=== PATIENT | female | born 1930 | race Caucasian/White ===

== ENCOUNTER → 2016-12-11 | Outpatient (CLI) | payer MEDICARE, BC ==
[~2016-12-11] MED LIST: ALENDRONATE SOD70 MG PO; AMBIEN10 MG PO; AMLODIPINE BESY10 MG PO; AMLODIPINE BESYL5 MG PO; ASPIRIN81 M1 PO; ASPIRIN81 M2 PO; CELEXA20 MG PO; ECOTRIN325 MG PO; HYZAAR 50-12.51 TA1 PO; IRON SUPPLEMENT1 TAB PO; LEVOTHROID50 MCG PO; LEVOTHYROXINE50 MCG PO; LIPITOR40 MG PO; LOSARTAN-HCTZ1 EACH PO; MELATONIN5 M1 PO; MELOXICAM15 MG PO; NORVASC PO; NORVASC10 MG PO; OMEPRAZOLE40 MG PO; PERCOCET5/325 PO; PREMARIN0.625 MG PO; PREVACID PO; PRILOSEC PO; SIMVASTATIN40 MG PO; SYNTHROID0.05 MG PO; TASPRIN325 MG PO; TOPROL XL 50 MG50 MG PO; TOPROL XL50 MG PO; TRAMADOL HCL50 M2 PO
--- NOTE | ~2016-12-11 | CT90 ---
[facility]. [facility] A Service of [facility] RADIOLOGY TEXT RESULTS PATIENT: CIARAN SHAW LOCATION: [facility] : 32 UNIT #: [id number] AGE: [address]: EDUARDO HOPE DO SEX: F ORDER DR: [id number] [place] [address] [id number] O MR#: [id number] Acc #: [id number] NAME: CIARAN SHAW : 1930 SEX: F STUDY DATE/TIME: 12/11/2016 11:09 UNIT: [facility] ROOM: STUDY DESCRIPTION: CT Lower Ext Lt W Cont Attending Physician: Eduardo Hope D.O. Referring Physician: Eduardo Hope D.O. Ordering Physician: Eduardo Hope D.O. Primary Care Physician: Eduardo Hope D.O. MEDICAL IMAGING REPORT This report is preliminary unless electronic signature is present. EXAM CT left lower extremity with contrast 12/11/2016 HISTORY 86-year-old female with 3 palpable nodules on the left thigh since May 11, 2016. The nodules are painful per the patient. Order states soft tissue mass, lymphadenopathy. COMPARISON STUDIES Comparison none. TECHNIQUE Helical scan performed through the left thigh following administration of IV contrast. Coronal and sagittal reformatted images. This CT exam was performed with one or more of the following radiation dose reduction techniques: automatic exposure control, adjustment of mA and/or kV according to patient size, and iterative reconstruction. FINDINGS External markers were placed over the 3 areas of palpable concern. Two of the markers are over the lateral aspect of the proximal thigh and 1 of the markers is over the anterior aspect of the mid thigh. Deep to these markers, there is no evidence of an abnormal soft tissue mass or other abnormality in the subcutaneous soft tissues. No fluid collections are seen. Visualized subcutaneous fat is normal in attenuation. No abnormal enhancement. The visualized musculature and osseous structures are unremarkable. There are degenerative changes noted in the left knee with a small left knee effusion and popliteal cyst. The visualized visceral pelvis demonstrates uncomplicated sigmoid colonic diverticulosis. IMPRESSION 1. No CT abnormalities noted in the marked areas of palpable concern [facility] A Service of [facility] RADIOLOGY TEXT RESULTS PATIENT: CIARAN SHAW LOCATION: [facility] : 32 UNIT #: [id number] AGE: [address]: EDUARDO HOPE DO SEX: F ORDER DR: along the lateral and anterior aspects of the left thigh. No abnormal enhancement. Subcutaneous fat is within normal limits. No abnormal fluid collections. 2. Degenerative changes of the left knee with small left knee effusion and popliteal cyst. 3. Uncomplicated sigmoid colonic diverticulosis. 1. Dictated by... Gigi Gaston M.D. THIS IS AN ELECTRONICALLY VERIFIED REPORT Gigi Gaston M.D. at 12/12/2016 4:50 PM Coral TD: 12/11/2016 18:54 JOB #: [id number] MEDICAL IMAGING REPORT Page 1 of 1
[2016-12-11 10:26] LABS: POC - CREATININE 0.91 mg/dL (0.44-1.03); POC - GFR >60.0 mL/min (>60)
== END | disposition home or self-care (01) ==
LOC: SCT 09:46
PROVIDERS: Family Medicine
DX: R59.1 Generalized enlarged lymph nodes (principal); M79.89 Other specified soft tissue disorders; K57.30 Diverticulosis of large intestine without perforation or abscess without bleeding
CPT/HCPCS: 73701; 82565; Q9967

== ENCOUNTER → 2017-01-05 | Outpatient (CLI) | payer MEDICARE, BC ==
--- NOTE | ~2017-01-05 | XA30 ---
[facility] A Service of [facility] RADIOLOGY TEXT RESULTS PATIENT: CIARAN SHAW LOCATION: [facility] : 32 UNIT #: [id number] AGE: [address]: Aquilino Dumont MD SEX: F ORDER DR: [id number] [place] [id number] [facility]. [place], [place] [address] [id number] O MR#: [id number] Acc #: [id number] NAME: CIARAN SHAW : 1930 SEX: F STUDY DATE/TIME: 01/05/2017 12:46 [facility]IT[facility] ROOM: STUDY DESCRIPTION: XA Arthrocentesis Major Joint Attending Physician: Aquilino Dumont M.D. Referring Physician: Aquilino Dumont M.D. Ordering Physician: Aquilino Dumont M.D. Primary Care Physician: Jean Carlos Yang D.O. MEDICAL IMAGING REPORT This report is preliminary unless electronic signature is present EXAM Fluoroscopically-guided left hip joint steroid injection INDICATION 86-year female with history of osteoarthritis and left hip pain. FLUORO TIME 0.4 minutes. One fluoroscopic image was taken. TECHNIQUE/FINDINGS The risks, benefits and alternatives of the procedure were discussed with the patient. Informed consent was obtained. In the procedure room, a time-out was performed confirming correct patient and procedure. All elements of maximum sterile-barrier technique utilized according to guidelines appropriate for the procedure. Skin overlying the left hip was prepped and draped in the usual sterile fashion. 1% lidocaine utilized to anesthetize the skin and underlying subcutaneous tissues. Next under fluoroscopic guidance a 22-gauge needle was advanced into the hip joint space on the left. Small amount of contrast was injected confirming satisfactory positioning. Next, 2 mL of 40 mg per mL Depo-Medrol followed by 3 mL of bupivacaine was injected into the hip joint space. Needle was removed and a sterile dressing was applied. No immediate complications. IMPRESSION Technically successful fluoroscopically-guided left hip joint injection with steroid and local anesthetic. Dictated by... Jones Hodge M.D. [facility] A Service of [facility] RADIOLOGY TEXT RESULTS PATIENT: CIARAN SHAW LOCATION: [facility] : 32 UNIT #: [id number] AGE: [address]: Aquilino Dumont MD SEX: F ORDER DR: THIS IS AN ELECTRONICALLY VERIFIED REPORT Jones Hodge M.D. at 01/07/2017 5:01 PM Ricki TD: 01/06/2017 11:08 JOB #: [id number] MEDICAL IMAGING REPORT Page 1 of 1 COPY
== END | disposition home or self-care (01) ==
LOC: CIVR 12:21
DX: M16.12 Unilateral primary osteoarthritis, left hip (principal)
CPT/HCPCS: 77002; J1030; Q9966

== ENCOUNTER → 2017-03-02 | Outpatient (CLI) | payer MEDICARE, BC ==
--- NOTE | ~2017-03-02 | CO ---
Unit #: [id number] #: [id number] Patient: CIARAN SHAW [id number] [address] [place], [place] [address] [id number] O MR#: [id number] NAME: CIARAN SHAW ROOM: Age: 86 Sex: F Admission Date: 03/02/2017 : 1930 Attending Physician: Aquilino Dumont M.D. Primary Care Physician: Jena Carlos Yang D.O. Consultation Date: 03/02/2017 CONSULTATION REPORT REASON FOR CONSULTATION Preoperative medical evaluation prior to left total knee arthroplasty, scheduled by Dr. Dumont for 03/11/2017. HISTORY OF PRESENT ILLNESS The patient is an 86-year-old female, who presents to preprocedural screening for the reasons indicated above. Other than complaining of left knee pain, she has no complaints at the time of the interview today. She recently underwent back surgery and underwent a total joint replacement in 04/2016 and tolerated both procedures well. She has no current or recent upper chest, upper back, arm, neck, jaw, pain or pressure. Denies orthopnea, PND, and/or shortness of air. She denies lightheadedness, dizziness, presyncope, or syncope and denies palpitations. She has a history of coronary artery disease and SC, but denies history of CHF, CVA, TIA, diabetes, and/or kidney disease. She has an appointment scheduled to see Dr. Dia, her plant technician, on 03/04/2017 for preoperative cardiac clearance. She has been evaluated by Dr. Dumont and scheduled for the above-referenced procedure. PAST MEDICAL HISTORY 1. Osteoarthritis. 2. Coronary artery disease, status post SC. 3. Hypothyroidism. 4. Hypertension. 5. History of pneumonia. 6. Depression and anxiety. 7. GERD. 8. HLD. 9. Risk factors for obstructive sleep apnea with recent preop pulmonary clearance. PAST SURGICAL HISTORY 1. Tonsillectomy. 2. Appendectomy. 3. Hysterectomy. 4. Cholecystectomy. 5. Colonoscopy x3. 6. Biopsy of left ear lesion. 7. D and C. 8. Bilateral cataract extraction. 9. Right total hip replacement on 05/11/2016 and back surgery on 10/09/2016. The patient states she developed bradycardia during an EGD procedure in 2013, but has otherwise tolerated anesthesia well. Unit #: [id number] #: [id number] Patient: CIARAN SHAW ALLERGIES Denies latex allergy. She had a reaction to penicillin "years ago," but does not recall the exact reaction. CURRENT MEDICATIONS Celexa 20 mg p.o. at bedtime, Toprol-XL 50 mg p.o. every morning, Prilosec 40 mg p.o. every morning, amlodipine besylate 10 mg p.o. every morning, Lipitor 40 mg p.o. at bedtime, melatonin 5 mg p.o. at bedtime, Meloxicam 15 mg p.o. every morning, levothyroxine sodium 50 mcg p.o. every morning, losartan/hydrochlorothiazide 50/12.5 mg tab one p.o. every morning, aspirin 325 mg p.o. daily, tramadol 50 mg p.o. q.6 hours p.r.n. pain, alendronate sodium 70 mg p.o. weekly on Thursday. SOCIAL HISTORY Denies tobacco use or illicit drug use. Also denies EtOH use. FAMILY HISTORY Per review of Dr. Dumont's consultation note; mother, stroke; father, hypertension. REVIEW OF SYSTEMS A 10-point review of systems is conducted and otherwise negative except as indicated under history of present illness above. PHYSICAL EXAMINATION GENERAL: An 86-year-old female, awake, alert, in no acute distress. Seated in recliner for this interview. VITAL SIGNS: Temperature 97.1, heart rate 53, respiratory rate 16, blood pressure 122/58, oxygen saturation on room air 95%. HEENT: Atraumatic, normocephalic. Sclerae anicteric. No discharge from eyes, ears, or nares. LYMPH: No preauricular, postauricular, tonsillar, submental, anterior, posterior, or cervical adenopathy. ENDOCRINE: No thyromegaly, thyroid nodules, or tenderness. RESPIRATORY: Clear to auscultation in all zhao bilaterally without wheezes, rhonchi, or rales. CARDIOVASCULAR: S1 and S2. Regular rate and rhythm without murmur or rub. GI: Bowel sounds are positive x4. Soft, nontender, nondistended. EXTREMITIES: No edema, cyanosis, or clubbing. MUSCULOSKELETAL: Strength 5/5 in all extremities bilaterally to flexion and extension. NEUROLOGIC: Alert and oriented x3. Speech clear. Follows directions during examination. DIAGNOSTIC STUDIES LABORATORY RESULTS: WBC 6.7, hemoglobin 13.5, hematocrit 40.1, platelets 286,000. Sodium 139, potassium 4.7, chloride 102, CO2 of 31, glucose 93, BUN 19, creatinine 0.7, calcium 9.4, AST 25, ALT 21, alkaline phos 101, bilirubin total 0.6, total protein 6.5, albumin 3.8. PT 10.8, INR 1.0. Urinalysis, leukocyte esterase 1+, nitrite negative, protein trace, ketone trace, blood negative, rbc's 2-5, wbc's 2-5, bacteria negative, squamous cells none seen. Urine culture and sensitivity not indicated at this time. Blood type A positive, antibody screen negative. MRSA nasal swab report pending at this time. 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 CARDIOLOGY: 12-lead EKG today, sinus bradycardia, low-voltage QRS, borderline ECG. IMPRESSION The patient is an 86-year-old female, who presents to preprocedural screening for: 1. Preoperative medical evaluation prior to left total knee arthroplasty, scheduled by Dr. Dumont. The patient's Dodge revised cardiac risk index based on risk factors available today is 1.0% to 1.3% and represents the patient's rate of fatal or nonfatal myocardial infarction, cardiopulmonary arrest, arrhythmia, and/or pulmonary edema. The patient again has an appointment and is to keep it with Dr. Dia as scheduled for preoperative cardiac clearance. We will consider placing the patient on expedition supervisor postoperatively. 2. History of coronary artery disease with myocardial infarction. The patient is stable from a cardiac standpoint today. Please refer to #1 above. 3. Hypothyroidism. TSH and free T4 of blood in lab are pending today. Plan continuation of home dose based on results. 4. Hypertension, stable. We will continue current home medications and adjust accordingly based on blood pressure trends. 5. History of pneumonia. The patient is asymptomatic today. 6. Depression and anxiety. Continue home medications. Stable. 7. Gastroesophageal reflux disease. 8. Hyperlipidemia. 9. Risk factors for obstructive sleep apnea. The patient has been evaluated and given preoperative pulmonary clearance by Meri Rodriguez N.P. We will monitor pulmonary status postoperatively. Thank you for allowing us to participate in the care of this patient. We will gladly follow the patient for postop medical management pending order of Dr. Dumont. Dictated by... Yamilet Dykes A.P.R.N. for Selvin Vines M.D. RYLEE/kalyan TD: 03/03/2017 04:10 JOB #: [id number] CONSULTATION REPORT Page 1 of 1 X Yamilet Dykes PLANNING ADVISOR X CONSULTATION REPORT
--- NOTE | ~2017-03-02 | EKG ---
PATIENT: CIARAN SHAW UNIT #: [id number] Ventricular Rate: 50 BPM Atrial Rate: 50 BPM P-R Interval: 180 ms QRS Duration: 70 ms Q-T Interval: 456 ms QTC Calculation(Bezet): 415 ms P [place]: 107 degrees Calculated R [place]: -7 degrees Calculated T [place]: 23 degrees Diagnosis Line: Sinus bradycardia Diagnosis Line: Low voltage QRS Diagnosis Line: Borderline ECG Diagnosis Line: When compared with ECG of 09-APR-2016 10:12, Diagnosis Line: Criteria for Inferior infarct are no longer Diagnosis Line: Present Diagnosis Line: ST now depressed in Anterior leads Diagnosis Line: Nonspecific T wave abnormality now evident in Diagnosis Line: Anterior leads Diagnosis Line: Confirmed by AJAY MCCARTHY MD ([id number]) on Diagnosis Line: 03/02/2017 2:27:15 PM INTERPRETING MD: FABIO BOOKER
[2017-03-02 10:26] LABS: URINE APPEARANCE CLEAR; URINE BILIRUBIN NEG (NEG); URINE BLOOD NEG (NEG); URINE COLOR DK YELLOW; URINE GLUCOSE NEG (NEG); URINE KETONE TRACE (NEG); URINE LEUKOCYTE ESTERASE 1+ (NEG); URINE NITRATE NEG (NEG); URINE PH 7.5 (5-8); URINE PROTEIN TRACE (NEG); URINE SPECIFIC GRAVITY 1.026 (1.003-1.035)
[2017-03-02 10:27] LABS: URINE BACTERIA AUWI NEG (NEGATIVE); URINE SQUAMOUS EPITHELIAL CELL NONE SEEN /[HPF]
[2017-03-02 10:28] LABS: CULTURE INDICATED? NO; URINE SOURCE CLEAN CATCH
[2017-03-02 10:53] LABS: HEMATOCRIT 40.1 % (35.0-45.0); HEMOGLOBIN 13.5 gm/dL (12.0-16.0); MEAN CELL VOLUME 88.9 FL (83-96); MEAN CORPUSCULAR HEMOGLOBIN 29.8 PG (28-34); MEAN CORPUSCULAR HGB CONC 33.6 g/dL (30-36); MEAN PLATELET VOLUME 8.8 FL (6.5-11.5); RED BLOOD COUNT 4.51 X10e (3.90-5.30); RED CELL DISTRIBUTION WIDTH 13.5 % (11.0-15.5); WHITE BLOOD COUNT 6.7 X10e3 (4.0-10.5)
[2017-03-02 11:06] LABS: PROTHROMBIN TIME (PATIENT) 10.8 SECONDS (10.0-11.7)
[2017-03-02 11:48] LABS: ALBUMIN SERUM 3.8 g/dL (3.5-5.0); BILIRUBIN,TOTAL 0.6 mg/dL (0.2-2.0); BUN/CREATININE RATIO 27.14; CALCIUM SERUM 9.4 mg/dL (8.4-10.2); CREATININE SERUM 0.7 mg/dL (0.6-1.4); GLOM FILT RATE Estimated 79.6 mL/min (>60); POTASSIUM 4.7 mmol/L (3.5-5.1); PROTEIN TOTAL SERUM 6.5 g/dL (6.0-8.3)
[2017-03-02 14:58] LABS: THYROID STIMULATING HORMONE 2.48 uIU/ml (0.34-5.60)
[2017-03-02 15:04] LABS: FREE THYROXIN (T4) 1.23 ng/dL (0.58-1.64)
== END | disposition home or self-care (01) ==
LOC: CAMB 09:21
PROVIDERS: Orthopaedic Surgery
DX: Z01.818 Encounter for other preprocedural examination (principal); M17.12 Unilateral primary osteoarthritis, left knee; R00.1 Bradycardia, unspecified
CPT/HCPCS: 36415; 80053; 81003; 84439; 84443; 85027; 85610; 86850; 86900; 86901; 87070; 93005